=== PATIENT | male | born 1955 | race Caucasian/White ===

== ENCOUNTER 2018-11-03 21:56 | Emergency (ER) | payer MEDICAID ==
[~2018-11-03] VITALS: Ht 177.8 cm; Wt 68.9 kg
[~2018-11-03 21:56] MED LIST: Acetaminophen PO; FOLI-17 PO; MAGN400T26 PO; MULT1TAB60 PO; THIA100T67 PO
[2018-11-03 22:33] VITALS: BP 145/83
== END 2018-11-03 22:35 | disposition home or self-care (01) ==
LOC: ED 22:10
DX: B86 Scabies (principal)
CPT/HCPCS: 99283; Q0177; 99282

== ENCOUNTER 2019-06-26 18:36 | Emergency (ER) | payer MEDICAID ==
[~2019-06-26] VITALS: Ht 177.8 cm; Wt 71.7 kg
[~2019-06-26 18:36] MED LIST changes: +ALLO300T PO; +LISI-167 PO
[2019-06-26] MEDS ORDERED: ATARAX (19:55)
--- NOTE | 2019-06-26 20:14 | NUR ---
PT HERE NOT FEELING WELL SINCE HE DRANK WITH HIS MEDS TODAY. VSS. TECH AT BEDSIDE FOR EKG. CALL LIGHT IN REACH
[2019-06-26 20:29] LABS: BASOPHILS # (AUTO) 0.03 x10^3/uL (0-0.1); BASOPHILS % (AUTO) 0 % (0-1); EOSINOPHILS % (AUTO) 0 % (1-7); LYMPHOCYTES # (AUTO) 0.47 x10^3/uL (1-3.4); LYMPHOCYTES % (AUTO) 5 % (22-44); MD NO; MEAN CORPUSCULAR HEMOGLOBIN 33.7 pg (27.5-34.5); MEAN CORPUSCULAR HGB CONC 33.8 g/dL (33.2-36.2); MEAN CORPUSCULAR VOLUME 99.9 fL (81-97); MEAN PLATELET VOLUME 7.2 fL (7.4-10.4); MONOCYTES # (AUTO) 0.34 x10^3/uL (0.2-0.8); MONOCYTES % (AUTO) 4 % (2-9); NEUTROPHILS # (AUTO) 8.71 x10^3/uL (1.8-6.8); NEUTROPHILS % (AUTO) 91 % (42-75); PLATELET COUNT 435 x10^3/uL (130-400); RED BLOOD COUNT 3.68 x10^6/uL (4.38-5.82); RED CELL DISTRIBUTION WIDTH 13.3 % (9.4-14.8)
[2019-06-26 20:39] LABS: ALANINE AMINOTRANSFERASE 31 U/L (12-78); ALBUMIN 3.5 g/dL (3.4-5.0); ANION GAP 8 mmol/L (5-15); CALCIUM 8.3 mg/dL (8.5-10.1); CHLORIDE 102 mmol/L (98-107)
[2019-06-26 20:43] LABS: ALKALINE PHOSPHATASE 134 U/L (45-117); BILIRUBIN,TOTAL 0.1 mg/dL (0.2-1.0); TROPONIN I < 0.015 ng/mL (0.000-0.045)
--- NOTE | 2019-06-26 22:00 | NUR ---
PT SLEEPING IN NAD. PT UNABLE TO AMBULTE AT THIS TIME. WILL REASSESS LATER FOR SAFE DISCHARGE
--- NOTE | 2019-06-27 00:12 | NUR ---
PT WALKED TO NURSES STATION WITH STEADY GAIT AND THANKED US FOR LETTING HIM SLEEP FOR MANY HOURS. PT STATES HE IS LEAVING. PT LEFT.
[2019-06-27 00:14] VITALS: BP 119/74
== END 2019-06-27 00:18 | disposition home or self-care (01) ==
LOC: ED 21:14
DX: T50.991A Poisoning by other drugs, medicaments and biological substances, accidental (unintentional), initial encounter (principal); F10.229 Alcohol dependence with intoxication, unspecified; Y92.89 Other specified places as the place of occurrence of the external cause; Y90.9 Presence of alcohol in blood, level not specified
CPT/HCPCS: 36415; 80053; 80307; 83735; 84484; 85025; 93005; 99284

== ENCOUNTER 2019-10-03 14:24 | Emergency (ER) | payer MEDICAID ==
[~2019-10-03] VITALS: Ht 177.8 cm; Wt 70.0 kg
[~2019-10-03 14:24] MED LIST changes: +ATARAX
--- NOTE | 2019-10-03 17:00 | NUR ---
PT REMAINS SLEEPING O2 IN PLACE NADN VSS
--- NOTE | 2019-10-03 18:59 | NUR ---
Assumed care at this time of patient at this time.
--- NOTE | 2019-10-03 19:14 | NUR ---
report to Cecille ALVAREZ
--- NOTE | 2019-10-03 19:22 | NUR ---
1ST CONTACT C PT. RESTING ON CART. NAD.
[2019-10-03 20:37] VITALS: BP 101/49
== END 2019-10-03 21:20 | disposition home or self-care (01) ==
LOC: ED 21:00
DX: F10.120 Alcohol abuse with intoxication, uncomplicated (principal); Z72.9 Problem related to lifestyle, unspecified; Y90.9 Presence of alcohol in blood, level not specified
CPT/HCPCS: 99283

== ENCOUNTER 2019-10-08 11:56 | Emergency (ER) | payer MEDICAID ==
[~2019-10-08] VITALS: Ht 177.8 cm; Wt 72.0 kg
--- NOTE | 2019-10-08 12:08 | NUR ---
BIB [facility]. PT C/O FALLING BACKWARDS OFF 6 STEPS WHILE ETOH INTOXICATED. PT HIT BACK OF HEAD AND TOP OF LEFT HIP HURTS. DENIES LOC, WITNESSED STATE PT DID NOT HAVE LOC. PT AMBULATED WITH STEADY GAIT INTO ROOM FROM AMBULANCE. PT CONNECTED TO MONITORING. CALL LIGHT IN REACH. AWAITING ORDERS AT THIS TIME.
[2019-10-08 13:13] VITALS: BP 117/72
--- NOTE | 2019-10-08 13:28 | NUR ---
ALL RESULTS ARE BACK AT THIS TIME. CHART UP FOR RECHECK.
== END 2019-10-08 14:04 | disposition home or self-care (01) ==
LOC: ED 13:51
DX: S06.0X9A Concussion with loss of consciousness of unspecified duration, initial encounter (principal); S16.1XXA Strain of muscle, fascia and tendon at neck level, initial encounter; S70.02XA Contusion of left hip, initial encounter; S00.03XA Contusion of scalp, initial encounter; W01.0XXA Fall on same level from slipping, tripping and stumbling without subsequent striking against object, initial encounter; Y93.89 Activity, other specified; Y92.89 Other specified places as the place of occurrence of the external cause; Y99.8 Other external cause status
CPT/HCPCS: 70450; 72125; 99285

== ENCOUNTER 2019-10-09 16:25 | Emergency (ER) | payer MEDICAID ==
[~2019-10-09] VITALS: Ht 177.8 cm; Wt 70.0 kg
[2019-10-09 16:29] VITALS: BP 125/68
--- NOTE | 2019-10-09 16:31 | NUR ---
PT BIB [facility] FOR ETOH. PT WAS FOUND BY POLICE ON THE SIDEWALK. THE POLICE GAVE HIM THE CHOICE OF EITHER TAKING A DRUNK IN PUBLIC CHARGE OR GOING WITH [facility]. HE CHOSE [facility]. PT IS AOX4. PROTECTING HIS AIRWAY. IS WATCHING TV
--- NOTE | 2019-10-09 18:31 | NUR ---
PT DISCHARGED. PT ESCORTED OUT AND HE AMBULATED WITH A STEADY GATE
== END 2019-10-09 18:32 | disposition home or self-care (01) ==
LOC: ED 16:40
DX: F10.120 Alcohol abuse with intoxication, uncomplicated (principal); Z72.9 Problem related to lifestyle, unspecified; Z87.891 Personal history of nicotine dependence; Y90.0 Blood alcohol level of less than 20 mg/100 ml
CPT/HCPCS: 99283

== ENCOUNTER 2019-10-20 14:39 | Emergency (ER) | payer MEDICAID ==
[~2019-10-20] VITALS: Ht 177.8 cm; Wt 68.2 kg
[~2019-10-20 14:39] MED LIST changes: +MULT-449 PO; -MULT1TAB60 PO
--- NOTE | 2019-10-20 14:40 | NUR ---
PT BIB [facility]. FOUND SLEEPING ON SIDEWALK ON [address] INTOXICATED, UNABLE TO AMBULATE. VSS PER EMS. BS 89. PT ARRIVES TO ED A&OX3. COOPERATIVE, SLEEPY. SPO2 78% ON RA, PLACED ON 2L O2 NC. POC RV'WD WITH PT.
--- NOTE | 2019-10-20 14:50 | NUR ---
ERP WAS IN TO SEE PT.
--- NOTE | 2019-10-20 15:43 | NUR ---
PT SLEEPING IN [facility]. WATER & JUICE & CRACKERS PROVIDED.
[2019-10-20 15:47] VITALS: BP 126/71
--- NOTE | 2019-10-20 15:53 | NUR ---
PT AMBULATED TO BR WITH STAND BY ASSIST. UNSTEADY ON AMBULATION. ERP UPDATED. WILL LET PT METABOLIZE FURTHER PRIOR TO DC.
--- NOTE | 2019-10-20 16:46 | NUR ---
D/C INSTRUCTIONS PROVIDED TO PT. PT AMBULATED OUT OF ED WITHOUT DIFFICULTY.
== END 2019-10-20 16:45 | disposition home or self-care (01) ==
LOC: ED 16:39
DX: F10.229 Alcohol dependence with intoxication, unspecified (principal); Y90.9 Presence of alcohol in blood, level not specified
CPT/HCPCS: 99283

== ENCOUNTER 2019-11-03 14:34 | Emergency (ER) | payer MEDICAID ==
[~2019-11-03] VITALS: Ht 177.8 cm; Wt 68.2 kg
--- NOTE | 2019-11-03 15:03 | NUR ---
PT UPRIGHT ON HOSPITAL BED RESTING WITH EYES CLOSED, NADN, NO NEEDS AT THIS TIME, CALL LIGHT WITHIN REACH.
[2019-11-03] MEDS ORDERED: THIAMINE 100MG TABLET ONE (15:48)
[2019-11-03] MEDS ORDERED: THIAMINE 100MG TABLET PO ONE (16:00)
--- NOTE | 2019-11-03 16:01 | NUR ---
PT REMAINS UPRIGHT ON GURNEY MOSTLY SLEEPING, NADN, NO NEEDS AT THIS TIME, CALL LIGHT WITHIN REACH.
[2019-11-03 17:00] VITALS: BP 153/81
--- NOTE | 2019-11-03 17:00 | NUR ---
PT UPRIGHT ON GURNEY MOSTLY SLEEPING, NADN, NO NEEDS AT THIS TIME, CALL LIGHT WITHIN REACH.
--- NOTE | 2019-11-03 18:04 | NUR ---
PT RESTING ON GURNEY WITH EYES CLOSED, ATE DINNER TRAY PROVIDED, RESPONDS APPROP TO STAFF, NAD, NO NEEDS AT THIS TIME, CALL LIGHT WITHIN REACH.
--- NOTE | 2019-11-03 18:30 | NUR ---
PT AMBULATED STEADILY WITHOUT ASSIST- DR VALLEJO AWARE.
--- NOTE | 2019-11-03 18:41 | NUR ---
Patient given discharge instructions and they have confirmed that they understand the instructions. Patient ambulatory with steady gait.
== END 2019-11-03 18:59 | disposition home or self-care (01) ==
LOC: ED 17:07
DX: F10.129 Alcohol abuse with intoxication, unspecified (principal); Y90.9 Presence of alcohol in blood, level not specified
CPT/HCPCS: 99283

== ENCOUNTER 2019-11-09 02:28 | Emergency (ER) | payer MEDICAID ==
[~2019-11-09] VITALS: Ht 172.7 cm; Wt 76.0 kg
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
--- NOTE | 2019-11-09 03:25 | NUR ---
PT BACK FROM CT, RESTING ON GURNEY. NO DISTRESS NOTED. PT DENIES ANY NEEDS AT THIS TIME. WILL CONTINUE TO MONITOR
[2019-11-09 03:35] VITALS: BP 157/86
[2019-11-09] MEDS ORDERED: LIDOCAINE-MPF 1%, 5ML ONE (04:10)
[2019-11-09] MEDS ORDERED: LIDOCAINE-MPF 1%, 5ML INFIL ONE (04:30)
--- NOTE | 2019-11-09 04:40 | NUR ---
SUTURES PLACED BY PA, PT TOLERATED WELL.
[2019-11-09] MEDS ORDERED: NEOSPORIN OINT. PKT 1 PACKET ONE (05:38)
--- NOTE | 2019-11-09 05:56 | NUR ---
Patient/Caregiver given discharge instructions and they have confirmed that they understand the instructions. Patient ambulatory with steady gait. PT PROVIDED WITH A CAB VOUCHER
== END 2019-11-09 05:58 | disposition home or self-care (01) ==
LOC: ED 03:13
DX: S01.81XA Laceration without foreign body of other part of head, initial encounter (principal); M54.2 Cervicalgia; F10.129 Alcohol abuse with intoxication, unspecified; Y90.9 Presence of alcohol in blood, level not specified; W01.0XXA Fall on same level from slipping, tripping and stumbling without subsequent striking against object, initial encounter; Y93.89 Activity, other specified; Y92.89 Other specified places as the place of occurrence of the external cause; Y99.8 Other external cause status
CPT/HCPCS: 12052; 70450; 72125; 99285

== ENCOUNTER 2019-11-09 17:09 | Emergency (ER) | payer MEDICAID ==
[~2019-11-09] VITALS: Ht 182.9 cm; Wt 78.0 kg
[2019-11-09] MEDS ORDERED: THIAMINE 100MG TABLET PO ONE (17:30)
--- NOTE | 2019-11-09 18:19 | NUR ---
pts sponsor is here with him. sponsor has arranged for pt to be taken in at [facility] once he is able to ambulate. sponsor stated [facility] will accept pt and send pt via cab.
[2019-11-09] MEDS ORDERED: THIAMINE 100MG TABLET ONE (18:41)
[2019-11-09 20:15] VITALS: BP 162/81
== END 2019-11-09 21:52 | disposition home or self-care (01) ==
LOC: ED 17:43
DX: F10.129 Alcohol abuse with intoxication, unspecified (principal); R07.89 Other chest pain; R51 Headache; Y90.0 Blood alcohol level of less than 20 mg/100 ml
CPT/HCPCS: 99283

== ENCOUNTER 2019-11-11 01:50 | Emergency (ER) | payer MEDICAID ==
[~2019-11-11] VITALS: Ht 177.8 cm; Wt 64.2 kg
[2019-11-11 02:16] LABS: BASOPHILS # (AUTO) 0.03 x10^3/uL (0-0.1); BASOPHILS % (AUTO) 1 % (0-1); EOSINOPHILS # (AUTO) 0.11 x10^3/uL (0-0.4); EOSINOPHILS % (AUTO) 2 % (1-7); LYMPHOCYTES # (AUTO) 0.69 x10^3/uL (1-3.4); LYMPHOCYTES % (AUTO) 10 % (22-44); MD NO; MEAN CORPUSCULAR HEMOGLOBIN 33.8 pg (27.5-34.5); MEAN PLATELET VOLUME 7.2 fL (7.4-10.4); MONOCYTES # (AUTO) 0.95 x10^3/uL (0.2-0.8); MONOCYTES % (AUTO) 13 % (2-9); NEUTROPHILS # (AUTO) 5.39 x10^3/uL (1.8-6.8); NEUTROPHILS % (AUTO) 75 % (42-75); PLATELET COUNT 229 x10^3/uL (130-400); RED BLOOD COUNT 3.73 x10^6/uL (4.38-5.82); RED CELL DISTRIBUTION WIDTH 13.3 % (9.4-14.8)
--- NOTE | 2019-11-11 02:16 | NUR ---
KERRI FROM [facility], PT REPORTS FALLING AND HITTING HEAD, PER PT REPORTS HE WANTS TO DETOX FROM ALCOHOL. PT ABLE TO ANSWER QUESTIONS AT THIS TIME. PLACED ON CARDIAC AND VITALS MONITORS. FALL PRECAUTIONS IN PLACE. [facility] STAFF AT BEDSIDE.
[2019-11-11 02:25] LABS: ALANINE AMINOTRANSFERASE 66 U/L (12-78); ALBUMIN 3.8 g/dL (3.4-5.0); ANION GAP 11 mmol/L (5-15); CALCIUM 8.9 mg/dL (8.5-10.1); CHLORIDE 90 mmol/L (98-107); CREATININE 1.43 mg/dL (0.7-1.3)
--- NOTE | 2019-11-11 02:25 | NUR ---
PT TO CT.
[2019-11-11 02:27] LABS: SALICYLATE LEVEL < 1.7 mg/dL (2.8-20.0)
[2019-11-11 02:30] LABS: ALKALINE PHOSPHATASE 101 U/L (45-117); BILIRUBIN,TOTAL 1.2 mg/dL (0.2-1.0); TOTAL PROTEIN 7.7 g/dL (6.4-8.2); TROPONIN I < 0.015 ng/mL (0.000-0.045)
[2019-11-11] MEDS ORDERED: SODIUM CHLORIDE 0.9% 1,000ML IVBOLUS ONE (02:30)
[2019-11-11] MEDS ORDERED: POTASSIUM CHLORIDE 20 MEQ TAB.ER.PRT PO ONE (02:30)
[2019-11-11] MEDS ORDERED: SODIUM CHLORIDE FLUSH 10ML SYR IVF ONE (02:30)
[2019-11-11] MEDS ORDERED: POTASSIUM CHLORIDE 20 MEQ TAB.ER.PRT ONE (02:50)
[2019-11-11] MEDS ORDERED: THIAMINE 100MG TABLET ONE (02:50)
[2019-11-11] MEDS ORDERED: THIAMINE 100MG TABLET PO ONE (03:00)
[2019-11-11 03:32] VITALS: BP 138/81
--- NOTE | 2019-11-11 03:34 | NUR ---
PT RESTING ON HERVE LAUGHLINS.
== END 2019-11-11 04:08 | disposition home or self-care (01) ==
LOC: ED 01:57
DX: F10.20 Alcohol dependence, uncomplicated (principal); R55 Syncope and collapse; E86.0 Dehydration; E87.6 Hypokalemia; E87.1 Hypo-osmolality and hyponatremia; R94.4 Abnormal results of kidney function studies; I51.7 Cardiomegaly; Y90.0 Blood alcohol level of less than 20 mg/100 ml
CPT/HCPCS: 36415; 70450; 71045; 80053; 80307; 83735; 84484; 85025; 93005; 96360; 99285; J7030

== ENCOUNTER 2019-11-11 08:42 | Inpatient (IN) | payer MEDICAID ==
[~2019-11-11] VITALS: Ht 167.6 cm; Wt 68.1 kg
[2019-11-11] MEDS ORDERED: SODIUM CHLORIDE FLUSH 10ML SYR IVF ONE (09:00)
[2019-11-11] MEDS ORDERED: THIAMINE 100MG TABLET PO ONE (09:00)
--- NOTE | 2019-11-11 09:16 | NUR ---
THIS TECH WALKED PT TO [facility] ROOM AND SHOWERED HIM.
[2019-11-11] MEDS ORDERED: LORazepam 2 MG/ML, 1ML ONE ×5 (09:20→14:14)
[2019-11-11] MEDS ORDERED: THIAMINE 100MG TABLET ONE (09:20)
[2019-11-11] MEDS: LORazepam 2 MG/ML, 1ML IVPush PRN ×4 (09:24→14:16)
[2019-11-11 09:45] LABS: BASOPHILS # (AUTO) 0.02 x10^3/uL (0-0.1); BASOPHILS % (AUTO) 0 % (0-1); EOSINOPHILS # (AUTO) 0.05 x10^3/uL (0-0.4); EOSINOPHILS % (AUTO) 1 % (1-7); LYMPHOCYTES # (AUTO) 0.81 x10^3/uL (1-3.4); LYMPHOCYTES % (AUTO) 11 % (22-44); MD NO; MEAN CORPUSCULAR HEMOGLOBIN 33.4 pg (27.5-34.5); MEAN CORPUSCULAR VOLUME 101.2 fL (81-97); MEAN PLATELET VOLUME 7.3 fL (7.4-10.4); MONOCYTES # (AUTO) 1.08 x10^3/uL (0.2-0.8); MONOCYTES % (AUTO) 15 % (2-9); NEUTROPHILS # (AUTO) 5.13 x10^3/uL (1.8-6.8); NEUTROPHILS % (AUTO) 72 % (42-75); PLATELET COUNT 269 x10^3/uL (130-400); RED BLOOD COUNT 3.84 x10^6/uL (4.38-5.82); RED CELL DISTRIBUTION WIDTH 13.5 % (9.4-14.8)
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
[2019-11-11 09:58] LABS: ANION GAP 8 mmol/L (5-15); CALCIUM 9.4 mg/dL (8.5-10.1); CHLORIDE 93 mmol/L (98-107); CREATININE 1.19 mg/dL (0.7-1.3)
[2019-11-11 10:01] LABS: ALANINE AMINOTRANSFERASE 65 U/L (12-78); ALKALINE PHOSPHATASE 109 U/L (45-117); BILIRUBIN,TOTAL 1.1 mg/dL (0.2-1.0); TOTAL PROTEIN 7.9 g/dL (6.4-8.2)
[2019-11-11] MEDS ORDERED: POTASSIUM CHLORIDE 20 MEQ TAB.ER.PRT ONE (10:17)
[2019-11-11] MEDS ORDERED: POTASSIUM CHLORIDE 20 MEQ TAB.ER.PRT PO ONE (10:30)
[2019-11-11] MEDS ORDERED: POTASSIUM CHLORIDE 40 MEQ in SODIUM CHLORIDE 0.9% 500 ML IV ONE (10:30)
--- NOTE | 2019-11-11 10:47 | NUR ---
PT. WAS GIVEN APPLE JUICE AND VOIDED. IV MEDICATIONS ARE INFUSING ON THE PUMP. PT. WAS GIVEN ORAL K+ DIRECTED. PT. IS RESTING WITHOUT CONCERNS, CP MONITOR REMAINS IN PLACE. VSS.
[2019-11-11] MEDS: SODIUM CHLORIDE 0.9% 1,000 ML IV SCH (11:32)
[2019-11-11] MEDS ORDERED: ACETAMINOPHEN 325 MG TABLET PO PRN (12:00)
[2019-11-11] MEDS ORDERED: LORazepam 2 MG/ML, 1ML IV PRN (12:00)
[2019-11-11] MEDS ORDERED: LORazepam 0.5MG TABLET PO PRN (12:00)
[2019-11-11] MEDS ORDERED: GABAPENTIN 300 MG CAPSULE PO PRN (12:00)
[2019-11-11] MEDS ORDERED: LORazepam 1MG TABLET PO PRN ×2 (12:00)
[2019-11-11] MEDS ORDERED: ENALAPRILAT 1.25 MG/ML, 2ML IVPush PRN (12:00)
[2019-11-11] MEDS ORDERED: BISACODYL 10 MG SUPP PR PRN (12:00)
[2019-11-11] MEDS ORDERED: ONDANSETRON ODT 4 MG PO PRN (12:00)
[2019-11-11] MEDS ORDERED: ONDANSETRON 2MG/ML, 2ML IVPush PRN (12:00)
[2019-11-11] MEDS ORDERED: DOCUSATE 100 MG CAPSULE PO PRN (12:00)
[2019-11-11] MEDS ORDERED: KETOROLAC 30 MG/1 ML IV PRN (12:00)
[2019-11-11] MEDS ORDERED: LABETALOL 5MG/ML, 20ML IVPush PRN (12:00)
[2019-11-11] MEDS ORDERED: POLYETHYLENE GLYCOL 17 GM PACKET PO PRN (12:00)
--- NOTE | 2019-11-11 12:40 | NUR ---
PT. WAS MEDICATED FOR TREMORS AND ETOH WITHDRAWL. HE REMAINS MONITORED AND IS TOLERATING PO FLUIDS. SIDERAILS REMAIN UP X [address], SITTER AT THE BEDSIDE. PT. IS AWARE HE'S NOT TO GET UP WITHOUT ASKING FOR HELP.
--- NOTE | 2019-11-11 13:33 | NUR ---
TASK RN: PT MEDICATED PER MAR
--- NOTE | 2019-11-11 14:07 | NUR ---
TASK RN: REPORT TO TEJAL ALVAREZ
--- NOTE | 2019-11-11 14:18 | NUR ---
TASK RN: MEDICATION ADMINISTERED PER ORDER. SHERRY. PT TREMELOUS. SITTER FROM [facility] WITH PT.
--- NOTE | 2019-11-11 15:10 | NUR ---
LATE ENTRY FOR 1500: PT CHANGED INTO CLEAN LINENS. SHERRY.
--- NOTE | 2019-11-11 15:11 | NUR ---
TASK RN: PT TRANSFERRING TO FLOOR. PT LEFT WITH ALL PERSONAL BELONGINGS. [facility] SITTER WITH PT.
[2019-11-11 15:37] VITALS: BP 170/94
[2019-11-11] MEDS: POLYTRIM OPHTH 10ML EACHEYE SCH ×3 (16:00→19:45)
[2019-11-11 16:29] LABS: ANION GAP 3 mmol/L (5-15); CHLORIDE 97 mmol/L (98-107); CREATININE 0.93 mg/dL (0.7-1.3)
[2019-11-11] MEDS: HEPARIN 5,000 UNITS/ML, 1ML SQ SCH (16:29)
[2019-11-11] MEDS: POTASSIUM CHLORIDE 20 MEQ, MAGNESIUM SULFATE 2 GM, THIAMINE 200 MG, MVI ADULT 10 ML, FO... IV SCH ×2 (16:29→21:15)
[2019-11-11] MEDS: CHLORDIAZEPOXIDE 25 MG CAPSULE PO PRN (17:06)
[2019-11-11] MEDS: LORazepam 2 MG/ML, 1ML IV PRN ×3 (18:32→22:10)
[2019-11-11 19:33] LABS: MICROSCOPIC INDICATED
[2019-11-11] MEDS: FAMOTIDINE 20 MG TABLET PO SCH (19:45)
[2019-11-11 20:35] VITALS: BP 117/82
[2019-11-12] MEDS: HEPARIN 5,000 UNITS/ML, 1ML SQ SCH ×3 (00:23→17:29)
[2019-11-12] MEDS: LORazepam 2 MG/ML, 1ML IV PRN ×3 (00:23→20:21)
[2019-11-12 02:52] VITALS: BP 161/92
[2019-11-12] MEDS: SODIUM CHLORIDE 0.9% 1,000 ML IV SCH ×2 (04:05→20:24)
[2019-11-12] MEDS: POLYTRIM OPHTH 10ML EACHEYE SCH ×4 (04:43→20:21)
[2019-11-12 07:20] LABS: BASOPHILS # (AUTO) 0.05 x10^3/uL (0-0.1); BASOPHILS % (AUTO) 1 % (0-1); EOSINOPHILS # (AUTO) 0.24 x10^3/uL (0-0.4); EOSINOPHILS % (AUTO) 4 % (1-7); LYMPHOCYTES # (AUTO) 0.56 x10^3/uL (1-3.4); LYMPHOCYTES % (AUTO) 8 % (22-44); MD NO; MEAN CORPUSCULAR HEMOGLOBIN 33.1 pg (27.5-34.5); MEAN CORPUSCULAR HGB CONC 32.5 g/dL (33.2-36.2); MEAN CORPUSCULAR VOLUME 101.8 fL (81-97); MEAN PLATELET VOLUME 7.2 fL (7.4-10.4); MONOCYTES # (AUTO) 1.01 x10^3/uL (0.2-0.8); MONOCYTES % (AUTO) 15 % (2-9); NEUTROPHILS # (AUTO) 5.03 x10^3/uL (1.8-6.8); NEUTROPHILS % (AUTO) 73 % (42-75); PLATELET COUNT 269 x10^3/uL (130-400); RED BLOOD COUNT 3.98 x10^6/uL (4.38-5.82); RED CELL DISTRIBUTION WIDTH 13.3 % (9.4-14.8)
[2019-11-12] MEDS ORDERED: CEFTRIAXONE PMX 1GM/50ML 50 ML IV SCH (07:30)
[2019-11-12 07:44] LABS: ALBUMIN 3.4 g/dL (3.4-5.0); ANION GAP 8 mmol/L (5-15); CALCIUM 8.4 mg/dL (8.5-10.1); CHLORIDE 98 mmol/L (98-107)
[2019-11-12 07:56] LABS: ALANINE AMINOTRANSFERASE 51 U/L (12-78); ALKALINE PHOSPHATASE 104 U/L (45-117); BILIRUBIN,TOTAL 1.2 mg/dL (0.2-1.0); CREATININE 0.72 mg/dL (0.7-1.3); TOTAL PROTEIN 7.6 g/dL (6.4-8.2)
[2019-11-12 08:15] VITALS: BP 126/83
[2019-11-12] MEDS: FAMOTIDINE 20 MG TABLET PO SCH ×2 (09:29→20:21)
[2019-11-12] MEDS: POTASSIUM CHLORIDE 20 MEQ, MAGNESIUM SULFATE 2 GM, THIAMINE 200 MG, MVI ADULT 10 ML, FO... IV SCH ×2 (10:37→18:56)
[2019-11-12 13:53] VITALS: BP 146/86
[2019-11-12] MEDS ORDERED: LINEZOLID PMX 600MG/300ML 300 ML IV SCH (16:30)
[2019-11-12] MEDS ORDERED: POTASSIUM CHLORIDE 20 MEQ TAB.ER.PRT PO ONE (16:30)
[2019-11-12] MEDS: AMPICILLIN/SULBACTAM 3 GM in SODIUM CHLORIDE 0.9% 100 ML IV SCH ×2 (17:29→23:13)
[2019-11-12] MEDS: CHLORDIAZEPOXIDE 25 MG CAPSULE PO PRN (19:44)
[2019-11-12 21:07] VITALS: BP 139/94
[2019-11-13 00:45] LABS: CLOSTRIDIUM DIFFICILE ANTIGEN NEGATIVE; CLOSTRIDIUM DIFFICILE TOXIN NEGATIVE (Negative)
[2019-11-13] MEDS: HEPARIN 5,000 UNITS/ML, 1ML SQ SCH ×3 (00:57→17:08)
[2019-11-13 01:20] VITALS: BP 135/81
[2019-11-13] MEDS: AMPICILLIN/SULBACTAM 3 GM in SODIUM CHLORIDE 0.9% 100 ML IV SCH ×4 (06:06→23:21)
[2019-11-13] MEDS: POLYTRIM OPHTH 10ML EACHEYE SCH ×4 (06:06→20:50)
[2019-11-13] MEDS: CHLORDIAZEPOXIDE 25 MG CAPSULE PO PRN ×2 (06:06→20:49)
[2019-11-13 06:34] LABS: BASOPHILS # (AUTO) 0.06 x10^3/uL (0-0.1); BASOPHILS % (AUTO) 1 % (0-1); EOSINOPHILS % (AUTO) 6 % (1-7); LYMPHOCYTES # (AUTO) 0.63 x10^3/uL (1-3.4); LYMPHOCYTES % (AUTO) 12 % (22-44); MD NO; MEAN CORPUSCULAR HEMOGLOBIN 33.6 pg (27.5-34.5); MEAN CORPUSCULAR HGB CONC 33.2 g/dL (33.2-36.2); MEAN CORPUSCULAR VOLUME 101.3 fL (81-97); MEAN PLATELET VOLUME 7.4 fL (7.4-10.4); MONOCYTES % (AUTO) 19 % (2-9); NEUTROPHILS # (AUTO) 3.34 x10^3/uL (1.8-6.8); NEUTROPHILS % (AUTO) 63 % (42-75); PLATELET COUNT 255 x10^3/uL (130-400); RED BLOOD COUNT 3.53 x10^6/uL (4.38-5.82); RED CELL DISTRIBUTION WIDTH 13.4 % (9.4-14.8)
[2019-11-13 06:38] LABS: ALANINE AMINOTRANSFERASE 42 U/L (12-78); ALBUMIN 3.5 g/dL (3.4-5.0); ANION GAP 4 mmol/L (5-15); CALCIUM 8.5 mg/dL (8.5-10.1); CHLORIDE 104 mmol/L (98-107); CREATININE 0.71 mg/dL (0.7-1.3)
[2019-11-13 06:40] LABS: ALKALINE PHOSPHATASE 95 U/L (45-117); BILIRUBIN,TOTAL 0.5 mg/dL (0.2-1.0); TOTAL PROTEIN 6.8 g/dL (6.4-8.2)
[2019-11-13 06:58] VITALS: BP 164/94
[2019-11-13] MEDS ORDERED: POTASSIUM CHLORIDE 20 MEQ TAB.ER.PRT PO ONE (07:30)
[2019-11-13] MEDS: FAMOTIDINE 20 MG TABLET PO SCH ×2 (08:24→20:49)
[2019-11-13] MEDS: NS + 20MEQ KCL 1,000 ML IV SCH (08:25)
[2019-11-13] MEDS: POTASSIUM CHLORIDE 20 MEQ, MAGNESIUM SULFATE 2 GM, THIAMINE 200 MG, MVI ADULT 10 ML, FO... IV SCH (10:30)
[2019-11-13 13:10] VITALS: BP 142/90
[2019-11-13 19:28] VITALS: BP 156/85
[2019-11-14 00:41] LABS: ANION GAP 6 mmol/L (5-15); CALCIUM 8.4 mg/dL (8.5-10.1); CHLORIDE 99 mmol/L (98-107); CREATININE 0.71 mg/dL (0.7-1.3)
[2019-11-14 00:49] VITALS: BP 154/85
[2019-11-14] MEDS ORDERED: POTASSIUM CHLORIDE 20 MEQ TAB.ER.PRT PO ONE (01:00)
[2019-11-14] MEDS ORDERED: MAGNESIUM SULFATE PMX 2GM/50ML 50 ML IV ONE (01:00)
[2019-11-14] MEDS ORDERED: SODIUM PHOSPHATE 20 MMOL in SODIUM CHLORIDE 0.9% 500 ML IV ONE (01:00)
[2019-11-14] MEDS: HEPARIN 5,000 UNITS/ML, 1ML SQ SCH ×3 (01:07→16:13)
[2019-11-14 05:15] LABS: CHLORIDE 99 mmol/L (98-107)
[2019-11-14 05:19] LABS: ANION GAP 6 mmol/L (5-15); CALCIUM 8.1 mg/dL (8.5-10.1); CREATININE 0.59 mg/dL (0.7-1.3)
[2019-11-14] MEDS: POLYTRIM OPHTH 10ML EACHEYE SCH ×4 (05:52→20:41)
[2019-11-14] MEDS: AMPICILLIN/SULBACTAM 3 GM in SODIUM CHLORIDE 0.9% 100 ML IV SCH ×3 (05:52→18:12)
[2019-11-14] MEDS: NS + 20MEQ KCL 1,000 ML IV SCH (05:52)
[2019-11-14 07:31] VITALS: BP 147/77
[2019-11-14] MEDS: FAMOTIDINE 20 MG TABLET PO SCH ×2 (08:17→20:40)
[2019-11-14 13:27] VITALS: BP 138/79
[2019-11-14 19:47] VITALS: BP 168/83
[2019-11-15] MEDS: AMPICILLIN/SULBACTAM 3 GM in SODIUM CHLORIDE 0.9% 100 ML IV SCH ×4 (01:03→20:13)
[2019-11-15 01:10] VITALS: BP 165/84
[2019-11-15] MEDS: PIPERONYL BUTOXIDE/PYRETHRINS SHAMPOO TP SCH ×2 (02:02→11:37)
[2019-11-15] MEDS: NS + 20MEQ KCL 1,000 ML IV SCH ×2 (02:32→13:17)
[2019-11-15] MEDS: HEPARIN 5,000 UNITS/ML, 1ML SQ SCH ×3 (02:32→20:14)
[2019-11-15] MEDS: POLYTRIM OPHTH 10ML EACHEYE SCH ×4 (05:36→20:13)
[2019-11-15 06:26] VITALS: BP 174/64
[2019-11-15 06:38] LABS: BASOPHILS # (AUTO) 0.06 x10^3/uL (0-0.1); BASOPHILS % (AUTO) 1 % (0-1); EOSINOPHILS # (AUTO) 0.43 x10^3/uL (0-0.4); EOSINOPHILS % (AUTO) 8 % (1-7); LYMPHOCYTES # (AUTO) 1.19 x10^3/uL (1-3.4); LYMPHOCYTES % (AUTO) 21 % (22-44); MD NO; MEAN CORPUSCULAR HEMOGLOBIN 33.2 pg (27.5-34.5); MEAN CORPUSCULAR HGB CONC 32.9 g/dL (33.2-36.2); MEAN CORPUSCULAR VOLUME 100.9 fL (81-97); MEAN PLATELET VOLUME 7.8 fL (7.4-10.4); MONOCYTES % (AUTO) 19 % (2-9); NEUTROPHILS # (AUTO) 2.94 x10^3/uL (1.8-6.8); NEUTROPHILS % (AUTO) 52 % (42-75); PLATELET COUNT 288 x10^3/uL (130-400); RED BLOOD COUNT 3.45 x10^6/uL (4.38-5.82); RED CELL DISTRIBUTION WIDTH 12.9 % (9.4-14.8)
[2019-11-15 06:47] LABS: ANION GAP 7 mmol/L (5-15); CALCIUM 8.5 mg/dL (8.5-10.1); CHLORIDE 97 mmol/L (98-107); CREATININE 0.62 mg/dL (0.7-1.3)
[2019-11-15] MEDS ORDERED: POTASSIUM CHLORIDE 20 MEQ TAB.ER.PRT PO ONE ×2 (08:30→17:00)
[2019-11-15] MEDS: FAMOTIDINE 20 MG TABLET PO SCH ×2 (08:45→20:14)
[2019-11-15] MEDS ORDERED: PIPERONYL BUTOXIDE/PYRETHRINS SHAMPOO TP SCH (12:00)
[2019-11-15 15:22] VITALS: BP 131/74
[2019-11-15 19:30] VITALS: BP 146/82
[2019-11-16 01:42] VITALS: BP 167/87
[2019-11-16] MEDS: AMPICILLIN/SULBACTAM 3 GM in SODIUM CHLORIDE 0.9% 100 ML IV SCH ×4 (02:37→20:11)
[2019-11-16] MEDS: NS + 20MEQ KCL 1,000 ML IV SCH ×2 (02:38→16:15)
[2019-11-16] MEDS: HEPARIN 5,000 UNITS/ML, 1ML SQ SCH ×3 (04:01→20:15)
[2019-11-16 04:48] LABS: ANION GAP 7 mmol/L (5-15); CALCIUM 8.7 mg/dL (8.5-10.1); CHLORIDE 100 mmol/L (98-107); CREATININE 0.63 mg/dL (0.7-1.3)
[2019-11-16] MEDS: POLYTRIM OPHTH 10ML EACHEYE SCH ×4 (05:21→20:15)
[2019-11-16] MEDS ORDERED: MAGNESIUM SULFATE PMX 2GM/50ML 50 ML IV ONE (09:00)
[2019-11-16 09:08] VITALS: BP 130/78
[2019-11-16] MEDS: FAMOTIDINE 20 MG TABLET PO SCH ×2 (09:45→20:15)
[2019-11-16 16:16] VITALS: BP 161/87
[2019-11-16 18:18] VITALS: BP 135/78
[2019-11-17 00:49] VITALS: BP 162/82
[2019-11-17] MEDS: AMPICILLIN/SULBACTAM 3 GM in SODIUM CHLORIDE 0.9% 100 ML IV SCH ×3 (02:00→13:41)
[2019-11-17] MEDS: HEPARIN 5,000 UNITS/ML, 1ML SQ SCH ×3 (04:41→19:54)
[2019-11-17] MEDS: POLYTRIM OPHTH 10ML EACHEYE SCH ×4 (04:41→19:54)
[2019-11-17] MEDS: NS + 20MEQ KCL 1,000 ML IV SCH ×2 (04:45→19:54)
[2019-11-17 06:20] LABS: BASOPHILS # (AUTO) 0.12 x10^3/uL (0-0.1); BASOPHILS % (AUTO) 2 % (0-1); EOSINOPHILS # (AUTO) 0.46 x10^3/uL (0-0.4); EOSINOPHILS % (AUTO) 6 % (1-7); LYMPHOCYTES # (AUTO) 1.25 x10^3/uL (1-3.4); LYMPHOCYTES % (AUTO) 17 % (22-44); MD NO; MEAN CORPUSCULAR HEMOGLOBIN 33.2 pg (27.5-34.5); MEAN CORPUSCULAR HGB CONC 33.2 g/dL (33.2-36.2); MEAN CORPUSCULAR VOLUME 99.9 fL (81-97); MEAN PLATELET VOLUME 7.6 fL (7.4-10.4); MONOCYTES # (AUTO) 1.29 x10^3/uL (0.2-0.8); MONOCYTES % (AUTO) 18 % (2-9); NEUTROPHILS # (AUTO) 4.11 x10^3/uL (1.8-6.8); NEUTROPHILS % (AUTO) 57 % (42-75); PLATELET COUNT 374 x10^3/uL (130-400); RED BLOOD COUNT 3.33 x10^6/uL (4.38-5.82); RED CELL DISTRIBUTION WIDTH 13.4 % (9.4-14.8)
[2019-11-17 06:22] LABS: CHLORIDE 101 mmol/L (98-107)
[2019-11-17 06:43] LABS: ANION GAP 11 mmol/L (5-15); CALCIUM 8.6 mg/dL (8.5-10.1)
[2019-11-17 07:44] VITALS: BP 165/89
[2019-11-17] MEDS: FAMOTIDINE 20 MG TABLET PO SCH ×2 (08:22→21:00)
[2019-11-17] MEDS ORDERED: MAGNESIUM SULFATE PMX 2GM/50ML 50 ML IV ONE (09:30)
[2019-11-17 13:02] VITALS: BP 139/76
[2019-11-17] MEDS ORDERED: AMOX1TAB64 PO (16:16)
[2019-11-17] MEDS ORDERED: CLON0.1T22 PO (16:16)
[2019-11-17] MEDS ORDERED: ACID1TAB7 PO (16:16)
[2019-11-17] MEDS ORDERED: THIA500T PO (16:26)
[2019-11-17] MEDS: LACTOBACILLUS CHEW TABLET PO SCH ×2 (16:44→19:54)
[2019-11-17 18:57] VITALS: BP 162/90
[2019-11-17] MEDS: AMOXICILLIN/CLAV 875-125MG TABLET PO SCH (19:54)
[2019-11-18 01:29] VITALS: BP 158/87
[2019-11-18] MEDS: HEPARIN 5,000 UNITS/ML, 1ML SQ SCH (05:11)
[2019-11-18] MEDS: LACTOBACILLUS CHEW TABLET PO SCH (05:11)
[2019-11-18] MEDS: POLYTRIM OPHTH 10ML EACHEYE SCH (05:11)
[2019-11-18 08:25] VITALS: BP 139/82
[2019-11-18] MEDS: FAMOTIDINE 20 MG TABLET PO SCH (08:31)
[2019-11-18] MEDS: AMOXICILLIN/CLAV 875-125MG TABLET PO SCH (08:32)
[2019-11-18] MEDS ORDERED: THIAMINE 100MG TABLET PO SCH (09:00)
== END 2019-11-18 11:15 | DRG 690 ==
LOC: ED 09:42 → EDIP 11:06 → 4EST 15:16 → 4WST 11-15 12:44
PROVIDERS: ADMIT Hospitalist; ATTEND Family Medicine
PROC: 5A12012 Performance of Cardiac Output, Single, Manual (ICD-10-PCS; principal; 2019-11-11)
DX: N39.0 Urinary tract infection, site not specified (principal); F10.239 Alcohol dependence with withdrawal, unspecified; E87.1 Hypo-osmolality and hyponatremia; I10 Essential (primary) hypertension; H10.9 Unspecified conjunctivitis; F10.229 Alcohol dependence with intoxication, unspecified; E87.6 Hypokalemia; E83.42 Hypomagnesemia; B95.2 Enterococcus as the cause of diseases classified elsewhere; B85.2 Pediculosis, unspecified; R29.6 Repeated falls; Z59.0 Homelessness; Z80.8 Family history of malignant neoplasm of other organs or systems; Z20.828 Contact with and (suspected) exposure to other viral communicable diseases; W18.30XA Fall on same level, unspecified, initial encounter; Y93.89 Activity, other specified; Y92.89 Other specified places as the place of occurrence of the external cause; Y99.8 Other external cause status
CPT/HCPCS: 36415; 96374; 99285; J7042; 71045; 80048; 80053; 81001; 82607; 83735; 84100; 84132; 84443; 85025; 87040; 87077; 87086; 87186; 87324; 87635; 93005; G0378; J0295; J0696; J1644; J3411; J3475; J3480; J2060; J7030; J7040

== ENCOUNTER 2020-02-17 05:57 | Emergency (ER) | payer MEDICAID ==
[~2020-02-17] VITALS: Ht 177.8 cm; Wt 75.0 kg
[~2020-02-17 05:57] MED LIST changes: +ACID1TAB7 PO; +AMOX1TAB64 PO; +CLON0.1T22 PO; +THIA500T PO
[2020-02-17] MEDS ORDERED: KETOROLAC 30 MG/1 ML IM ONE (06:30)
[2020-02-17] MEDS ORDERED: HYDROcodone/APAP 5/325 TABLET PO ONE (06:30)
[2020-02-17] MEDS ORDERED: COLCHICINE 0.6 MG CAPSULE PO ONE (06:30)
[2020-02-17] MEDS ORDERED: KETOROLAC 60 MG/2 ML ONE (06:46)
[2020-02-17] MEDS ORDERED: COLCHICINE 0.6 MG CAPSULE ONE ×2 (06:47→07:16)
[2020-02-17] MEDS ORDERED: HYDROcodone/APAP 5/325 TABLET ONE (06:47)
--- NOTE | 2020-02-17 06:52 | NUR ---
REPORT RECEIVED FROM ANTONIO DANIELLE. ASSUMING PRIMARY CARE OF PT. LOLIS ADMINISTERING MEDICATION PER EMAR. RN TO ADMINISTER MEDICATION PRIOR TO PT'S DC. PT LYING ON [employer] READING BOOK. RN TO CONTINUE TO MONITOR.
--- NOTE | 2020-02-17 06:53 | NUR ---
BEDSIDE REPORT TO ANTONIO EDMONDS. PT SITTING ON GURNEY. NADN. RESPIRATIONS EVEN AND UNLABORED.
--- NOTE | 2020-02-17 07:14 | NUR ---
PT STATED MEDICATION HAS HELPED WITH PAIN. RN TO DC PT HOME IN A STABLE CONDITION.
[2020-02-17 07:21] VITALS: BP 160/75
--- NOTE | 2020-02-17 07:21 | NUR ---
PT BEING DC HOME IN A STABLE CONDITION. DC INSTRUCTIONS DISCUSSED WITH PT. PT VERBALIZED UNDERSTANDING. PRESCRIPTION SCRIPT PROVIDED TO PT. NO FURTHER QUESTIONS OR CONCERNS EXPRESSED. RN TO WHEEL PT OUT OF ED.
[2020-02-17] MEDS ORDERED: COLCHICINE 0.6 MG CAPSULE PO SCH (07:30)
== END 2020-02-17 07:23 | disposition home or self-care (01) ==
LOC: ED 06:44
DX: M17.11 Unilateral primary osteoarthritis, right knee (principal); M19.071 Primary osteoarthritis, right ankle and foot; M10.9 Gout, unspecified
CPT/HCPCS: 96372; 99284; J1885

== ENCOUNTER 2020-03-06 06:50 | Emergency (ER) | payer MEDICAID ==
[~2020-03-06] VITALS: Ht 177.8 cm; Wt 75.7 kg
--- NOTE | 2020-03-06 07:20 | NUR ---
PT OFF THE FLOOR TO RADIOLOGY
--- NOTE | 2020-03-06 07:49 | NUR ---
PT C/O RIGHT ELBOW PAIN AFTER SLIP AND FALL ON ICE THIS AM. PT STATES HE FELL ON HIS BACKSIDE AND CAME DOWN ON HIS ELBOW. PT HAS BUMP ON HIS RIGHT ELBOW WITH PAIN RATED 8/10.
[2020-03-06 07:53] VITALS: BP 157/82
--- NOTE | 2020-03-06 09:19 | NUR ---
assumed care for discharge only Patient/Caregiver given discharge instructions and they have confirmed that they understand the instructions. Patient ambulatory with steady gait.
== END 2020-03-06 09:21 ==
LOC: ED 09:15
DX: S52.021A Displaced fracture of olecranon process without intraarticular extension of right ulna, initial encounter for closed fracture (principal); M70.21 Olecranon bursitis, right elbow; W19.XXXA Unspecified fall, initial encounter; Y93.89 Activity, other specified; Y92.098 Other place in other non-institutional residence as the place of occurrence of the external cause; Y99.8 Other external cause status
CPT/HCPCS: 29105; 99283